=== PATIENT | female | born 1980 | race American Indian/Alaskan Native ===

== ENCOUNTER 2021-07-24 05:54 | Day surgery (SDC) | payer MEDICAID ==
[~2021-07-24 05:54] MED LIST: BUPIVACAINE/PF (0.5%) 5 MG/1 ML 30 ML VIAL INFILTRATI ONE; HEPARIN 10,000 UNITS/10 ML VIAL IV ONE; SODIUM CHLORIDE 0.9% 500 ML IVPB IV ONE; SODIUM CHLORIDE 0.9% IRR 1,500 ML BOTTLE IR ONE
[2021-07-24] MEDS ORDERED: ceFAZolin/STERILE WATER 2 GM/20 ML SYRINGE IV NR (06:00)
[2021-07-24] MEDS ORDERED: SODIUM CHLORIDE 0.9% 1000 ML 1,000 ML ONE (06:10)
[2021-07-24 06:47] LABS: Hematocrit 35.5 % (30.3-42.9); Mean Corpuscular HGB Conc 31 % (30-34); Mean Corpuscular Volume 88 fl (79-97); Platelet Count 242 K/mm3 (140-440); Red Blood Count 4.05 M/mm3 (3.65-5.03)
[2021-07-24 06:59] LABS: Red Cell Distribution Width 23.4 % (13.2-15.2)
[2021-07-24 07:02] LABS: Calcium 8.8 mg/dL (8.4-10.2)
[2021-07-24] MEDS ORDERED: SCOPOLAMINE TRANSDERMAL PATCH 72 HR TD ONE (07:10)
[2021-07-24] MEDS ORDERED: HEPARIN 10,000 UNITS/10 ML VIAL ONE (07:13)
[2021-07-24] MEDS ORDERED: LIDOCAINE 1%/EPINEPHRINE 1:100,000 VIAL (20 ML) INFILTRATI ONE (07:14)
[2021-07-24] MEDS ORDERED: SODIUM CHLORIDE 0.9% 500 ML 500 ML ONE (07:14)
[2021-07-24] MEDS ORDERED: SODIUM BICARBONATE 2 MEQ/2 ML SYRINGE ONE (07:14)
--- NOTE | 2021-07-24 07:18 | Anesthesia Day of Surgery ---
Anesthesia Day of Surgery - Day of Surgery Patient Examined: Yes Patient H&P Reviewed: Yes Patient is NPO: Yes Beta Blockers: No
--- NOTE | 2021-07-24 07:18 | Anesthesia Consultation ---
Anesthesia Consult and Med Hx Date of service: 07/24/21 - Airway Anesthetic Teeth Evaluation: Good ROM Head & Neck: Adequate Mental/Hyoid Distance: Adequate Mallampati Class: Class II Intubation Access Assessment: Probably Good - Pulmonary Exam CTA: Yes - Cardiac Exam Cardiac Exam: RRR - Pre-Operative Health Status ASA Pre-Surgery Classification: ASA3 Proposed Anesthetic Plan: General - Pre-Anesthesia Comment Pre-Anesthesia Comments: Patient prefers general anesthesia. - Pulmonary Hx Smoking: No Hx Respiratory Symptoms: No Hx Sleep Apnea: No - Cardiovascular System Hx Hypertension: Yes (no medications in two days) Hx Cardia Arrhythmia: No - Central Nervous System Hx Neuromuscular Disorder: No Hx Psychiatric Problems: No - Gastrointestinal Hx Gastroesophageal Reflux Disease: No - Endocrine Hx End Stage Renal Disease: Yes ("due to hypertension and lupus"; dialysed yesterday; K+ 4.1 today) - Hematic Hx Anemia: Yes - Other Systems Hx Alcohol Use: No Hx Substance Use: Yes (SMOKES HEMP EVERY OTHER WEEK) Hx Cancer: No - Additional Comments Anesthesia Medical History Comments: No GAC, no FHAC.
[2021-07-24] MEDS ORDERED: MIDAZOLAM 2 MG/2 ML INJ IV NR (07:20)
[2021-07-24] MEDS ORDERED: BUPIVACAINE/PF (0.5%) 5 MG/1 ML 30 ML VIAL INFILTRATI ONE ×2 (07:24→09:31)
[2021-07-24] MEDS ORDERED: LIDOCAINE (1%) 10 MG/1 ML VIAL 20 ML MDV ONE (07:24)
[2021-07-24] MEDS ORDERED: ROCURONIUM 50 MG/5 ML INJ IV ONE (07:28)
[2021-07-24] MEDS ORDERED: SUCCINYLCHOLINE CHLORIDE 200 MG/10 ML INJ MDV ONE (07:28)
[2021-07-24] MEDS ORDERED: fentaNYL 100 MCG/2 ML INJ ONE ×3 (07:28→09:28)
[2021-07-24] MEDS ORDERED: propofoL 200 MG/20 ML VIAL IV ONE (07:28)
[2021-07-24] MEDS ORDERED: LIDOCAINE MPF (2%) 20 MG/1 ML VIAL 5 ML ONE (07:28)
[2021-07-24] MEDS ORDERED: ePHEDrine SULFATE 50 MG/1 ML INJ ONE ×2 (07:28→09:36)
[2021-07-24] MEDS ORDERED: SODIUM CHLORIDE 0.9% 1000 ML 1,000 ML IV SCH (07:30)
[2021-07-24] MEDS ORDERED: ONDANSETRON 4 MG/2 ML INJ IV PRN (07:42)
[2021-07-24] MEDS ORDERED: HYDROmorphone 1 MG/1 ML INJ IV PRN ×2 (07:42)
[2021-07-24] MEDS ORDERED: SCOPOLAMINE TRANSDERMAL PATCH 72 HR TD NR (08:00)
[2021-07-24] MEDS ORDERED: SODIUM CHLORIDE 0.9% 500 ML IVPB IV ONE (09:31)
[2021-07-24] MEDS ORDERED: HEPARIN 10,000 UNITS/10 ML VIAL IV ONE (09:31)
[2021-07-24] MEDS ORDERED: SODIUM CHLORIDE 0.9% IRR 1,500 ML BOTTLE IR ONE (09:31)
--- NOTE | 2021-07-24 10:28 | Short Stay Summary ---
Short Stay Documentation Date of service: 07/24/21 Narrative H&P: See H&P - History H&P: obtained from office - Allergies and Medications Current Medications: Allergies No Known Allergies Allergy (Verified 07/17/21 11:56) Home Medications Medication Instructions Recorded Confirmed Last Taken Type Acetaminophen [Aphen] 325 mg PO PRN PRN 07/17/21 07/17/21 Unknown History AtorvaSTATin [Lipitor] 20 mg PO QHS 07/17/21 07/24/21 07/22/21 20:00 History Docusate Sodium [Dok] 100 mg PO 3XW 07/17/21 07/24/21 07/22/21 09:00 History Losartan Potassium 100 mg PO DAILY 07/17/21 07/24/21 07/22/21 09:00 History Zolpidem (Nf) [Ambien (Nf)] 10 mg PO HS 07/17/21 07/24/21 07/22/21 20:00 History calcitrioL [Rocaltrol] 0.25 mcg PO DAILY 07/17/21 07/24/21 07/22/21 09:00 History Active Medications Cefazolin Sodium (Cefazolin/Sterile Water 2 Gm/20 Ml Syringe) 2 gm IV PREOP NR Stop: 07/24/21 23:55 Hydromorphone HCl (Hydromorphone 1 Mg/1 Ml Inj) 0.25 mg IV Q10MIN PRN PRN Reason: Pain, Moderate (4-6) Stop: 07/24/21 20:00 Hydromorphone HCl (Hydromorphone 1 Mg/1 Ml Inj) 0.5 mg IV Q10MIN PRN PRN Reason: Pain , Severe (7-10) Stop: 07/24/21 20:00 Sodium Chloride (Nacl 0.9% 1000 Ml) 1,000 mls @ 42 mls/hr IV DIRECT JOSEFA Stop: 07/24/21 23:00 Last Admin: 07/24/21 07:20 Dose: 42 mls/hr Documented by: Midazolam HCl (Midazolam 2 Mg/2 Ml Inj) 2 mg IV ONCE NR Stop: 07/24/21 11:00 Last Admin: 07/24/21 07:44 Dose: 2 mg Documented by: Ondansetron HCl (Ondansetron 4 Mg/2 Ml Inj) 4 mg IV ONCE PRN PRN Reason: Nausea And Vomiting Stop: 07/24/21 18:00 Scopolamine (Scopolamine Transdermal Patch 72 Hr) 1 each TD PREOP NR Stop: 07/24/21 11:00 Last Admin: 07/24/21 07:25 Dose: 1 each Documented by: - Brief post op/procedure progress note Date of procedure: 07/24/21 Pre-op diagnosis: End-Stage Renal Disease Post-op diagnosis: same Procedure: Creation of Left Brachiocephalic Arteriovenous Fistula Anesthesia: GETA Surgeon: DAWIT AMBROSIO Estimated blood loss: minimal Pathology: none Condition: stable - Disposition Condition at discharge: Good Short Stay Discharge Plan Activity: other (No heavy lifting with left arm for 2 weeks. You stress ball with left hand as often as possible.) Wound: open to air, keep clean and dry, other (Okay to wash the left arm wound with soap and water but do not soak in water for 2 weeks.) Follow up with: DAWIT AMBROSIO MD [Staff Physician] - 14 Days Prescriptions: HYDROcodone/APAP 5-325 [[place] 5/325] 1 each PO Q4HR PRN #30 tablet PRN Reason: Pain
--- NOTE | 2021-07-24 10:31 | Operative Report ---
Operative Report Operative Report: Date of procedure: 07/24/2021 Pre-operative diagnosis: End-Stage Renal Disease Post-operative diagnosis: End-Stage Renal Disease Procedure(s): Creation of Left Brachial Artery to Cephalic Vein Arteriovenous Fistula Surgeon: Raleigh Melissa MD Container Maker: None Anesthesia: General Endotracheal Anesthesia EBL: Minimal Counts: Correct Complications: None Condition: Stable Findings: Successful creation of left brachiocephalic arteriovenous fistula with palpable thrill and palpable radial pulse at the completion of the case. Specimen: None Indications: The patient is a 41-year-old female with a history of end-stage renal disease who is currently on hemodialysis through a right internal jugular permacath. She is in need of long-term dialysis access and was found to be a suitable candidate for creation of an arteriovenous fistula. She was given the risk, benefits, and alternative procedures and consented to the procedure. Description of Procedure: The patient was brought to the operating room and laid in supine position. After general endotracheal anesthesia was achieved left arm was prepped and draped in normal sterile fashion. A transverse incision was then made and carried down to the cephalic vein using sharp dissection. The vein was dissected out both proximally and distally and suture ligated and divided distally. I flushed the vein with heparinized saline and flow was controlled with a bulldog clamp. I then dissected out the brachial artery through this incision circumferentially both proximal and distal and controlled the artery with vessel loops. I systemically heparinized the patient with 3000 units of heparin IV and used angled DeBakey clamps to control flow through the artery. I created an arteriotomy using an 11 blade and Mcqueen scissors. I created an end to side anastomosis between the cephalic vein and brachial artery using a 6-0 Prolene in running fashion. Prior to completing the anastomosis I flashed the artery both proximally and distally and then flushed the anastomosis with heparinized saline to remove any debris. I then completed the anastomosis and removed all clamps allowing flow into the fistula which had an adequate thrill. I achieved hemostasis with a combination of Quick Clot and electrocautery. Once hemostasis had been achieved I closed the wound in 2 layers using a 3-0 Vicryl in a running fashion in the deep dermal layer and a 4-0 Monocryl in running fashion in the subcuticular layer. I then dressed the wound with Dermabond. The patient tolerated the procedure well. All sponge, needle, and instrument counts were correct. The patient was taken to the recovery area in stable condition.
[2021-07-24 11:19] VITALS: BP 117/69
[2021-07-24] MEDS ORDERED: HYDROcodone/ACETAMINOPHEN 5-325 MG TAB PO PRN (12:00)
--- NOTE | 2021-07-24 15:50 | Post Anesthesia Evaluation ---
- Post Anesthesia Evaluation Patient Participated: Yes Airway Patent: Yes Stable Respiratory Function: Yes Nausea/Vomiting: No Temp > 96.8F: Yes Pain Manageable: Yes Adequeate Hydration: Yes Anesthesia Complications: No Block Receding Appropriately: Not Applicable Patient on Ventilator: No
== END 2021-07-24 12:30 | disposition home or self-care (01) ==
LOC: OR 05:54
PROVIDERS: ATTEND Surgery Vascular Surgery
DX: I12.0 Hypertensive chronic kidney disease with stage 5 chronic kidney disease or end stage renal disease (principal); N18.6 End stage renal disease; E78.00 Pure hypercholesterolemia, unspecified; M19.90 Unspecified osteoarthritis, unspecified site; K21.9 Gastro-esophageal reflux disease without esophagitis; D64.9 Anemia, unspecified; Z99.2 Dependence on renal dialysis; Z79.899 Other long term (current) drug therapy; Z98.890 Other specified postprocedural states
CPT/HCPCS: 36415; 36821; 80048; 84703; 85027; J0330; J0690; J1644; J2250; J2704; J3010; J3490; J7030; J7040; J7120; Q0162

== ENCOUNTER 2021-12-11 05:38 | Day surgery (SDC) | payer MEDICARE ==
[2021-12-11] MEDS ORDERED: MIDAZOLAM 2 MG/2 ML INJ IV NR (06:00)
[2021-12-11] MEDS ORDERED: ceFAZolin/STERILE WATER 2 GM/20 ML SYRINGE IV NR (06:00)
[2021-12-11] MEDS ORDERED: SODIUM CHLORIDE 0.9% 1000 ML 1,000 ML IV SCH (06:00)
[2021-12-11 06:47] LABS: Hemoglobin 9.6 gm/dl (10.1-14.3); Mean Corpuscular HGB Conc 34 % (30-34); Mean Corpuscular Volume 92 fl (79-97); Platelet Count 230 K/mm3 (140-440); Red Blood Count 3.03 M/mm3 (3.65-5.03); Red Cell Distribution Width 18.7 % (13.2-15.2)
[2021-12-11 07:00] LABS: Calcium 8.7 mg/dL (8.4-10.2)
[2021-12-11] MEDS ORDERED: LIDOCAINE MPF (2%) 20 MG/1 ML VIAL 5 ML ONE (07:18)
[2021-12-11] MEDS ORDERED: fentaNYL 100 MCG/2 ML INJ ONE (07:18)
[2021-12-11] MEDS ORDERED: propofoL 200 MG/20 ML VIAL IV ONE (07:19)
--- NOTE | 2021-12-11 07:21 | Anesthesia Consultation ---
Anesthesia Consult and Med Hx Date of service: 12/11/21 - Airway Anesthetic Teeth Evaluation: Good ROM Head & Neck: Adequate Mental/Hyoid Distance: Adequate Mallampati Class: Class II Intubation Access Assessment: Probably Good - Pre-Operative Health Status ASA Pre-Surgery Classification: ASA3 Proposed Anesthetic Plan: General - Pulmonary Hx Smoking: No Hx Respiratory Symptoms: No Hx Sleep Apnea: No - Cardiovascular System Hx Hypertension: No (prior hx HTN; currently on midodrine for hypotension) Hx Heart Attack/AMI: No - Central Nervous System CVA: No - Endocrine Hx End Stage Renal Disease: Yes (last HD 12/10/21) Hx Liver Disease: No Hx Insulin Dependent Diabetes: No Hx Non-Insulin Dependent Diabetes: No Hx Thyroid Disease: No - Hematic Hx Anemia: Yes - Other Systems Hx Obesity: Yes (BMI 37) - Additional Comments Anesthesia Medical History Comments: No hx anesthetic complications.
--- NOTE | 2021-12-11 07:21 | Anesthesia Day of Surgery ---
Anesthesia Day of Surgery - Day of Surgery Patient Examined: Yes Patient H&P Reviewed: Yes Patient is NPO: Yes
[2021-12-11] MEDS ORDERED: BUPIVACAINE/PF (0.5%) 5 MG/1 ML 30 ML VIAL INFILTRATI ONE ×2 (07:38→09:05)
[2021-12-11] MEDS ORDERED: SODIUM CHLORIDE 0.9% 500 ML 500 ML ONE (07:39)
[2021-12-11] MEDS ORDERED: HEPARIN 10,000 UNITS/10 ML VIAL ONE (07:39)
[2021-12-11] MEDS ORDERED: ONDANSETRON 4 MG/2 ML INJ IV NR (08:00)
[2021-12-11] MEDS ORDERED: fentaNYL 100 MCG/2 ML INJ IV PRN (08:00)
[2021-12-11] MEDS ORDERED: SCOPOLAMINE TRANSDERMAL PATCH 72 HR TD NR (08:00)
[2021-12-11] MEDS ORDERED: ePHEDrine SULFATE 50 MG/1 ML INJ ONE (08:53)
[2021-12-11] MEDS ORDERED: HEPARIN 10,000 UNITS/10 ML VIAL IR ONE (09:04)
[2021-12-11] MEDS ORDERED: SODIUM CHLORIDE 0.9% 500 ML IVPB IRRIGATION ONE (09:05)
[2021-12-11] MEDS ORDERED: SODIUM CHLORIDE 0.9% IRR 1,500 ML BOTTLE IR ONE (10:09)
--- NOTE | 2021-12-11 10:14 | Short Stay Summary ---
Short Stay Documentation Date of service: 12/11/21 Narrative H&P: See H&P - History H&P: obtained from office - Allergies and Medications Current Medications: Allergies No Known Allergies Allergy (Verified 12/03/21 11:31) Home Medications Medication Instructions Recorded Confirmed Last Taken Type AtorvaSTATin [Lipitor] 20 mg PO QHS 07/17/21 12/03/21 07/22/21 20:00 History Docusate Sodium [Dok] 100 mg PO 3XW 07/17/21 12/03/21 07/22/21 09:00 History Losartan Potassium 100 mg PO DAILY 07/17/21 12/03/21 07/22/21 09:00 History Zolpidem (Nf) [Ambien (Nf)] 10 mg PO HS 07/17/21 12/03/21 07/22/21 20:00 History calcitrioL [Rocaltrol] 0.25 mcg PO DAILY 07/17/21 12/03/21 07/22/21 09:00 History Midodrine [Proamatine] 10 mg PO TID@0800,1200,1600 12/03/21 12/03/21 Unknown History Active Medications Cefazolin Sodium (Cefazolin/Sterile Water 2 Gm/20 Ml Syringe) 2 gm IV PREOP NR Stop: 12/11/21 23:59 Fentanyl (Fentanyl 100 Mcg/2 Ml Inj) 50 mcg IV Q5MIN PRN PRN Reason: Pain , Severe (7-10) Stop: 12/11/21 18:00 Sodium Chloride (Nacl 0.9% 1000 Ml) 1,000 mls @ 42 mls/hr IV DIRECT JOSEFA Stop: 12/11/21 23:59 Last Admin: 12/11/21 07:30 Dose: 42 mls/hr Midazolam HCl (Midazolam 2 Mg/2 Ml Inj) 2 mg IV PREOP NR Stop: 12/11/21 23:00 Last Admin: 12/11/21 07:40 Dose: 2 mg Ondansetron HCl (Ondansetron 4 Mg/2 Ml Inj) 4 mg IV PREOP NR Stop: 12/11/21 17:00 Last Admin: 12/11/21 07:35 Dose: 4 mg Scopolamine (Scopolamine Transdermal Patch 72 Hr) 1 each TD PREOP NR Stop: 12/11/21 17:00 Last Admin: 12/11/21 07:37 Dose: 1 each - Brief post op/procedure progress note Date of procedure: 12/11/21 Pre-op diagnosis: Complications of Dialysis Access Post-op diagnosis: same Procedure: Elevation of Left Brachiocephalic Arteriovenous Fistula Anesthesia: JOAN Surgeon: DAWIT AMBROSIO Estimated blood loss: 50-100ml Pathology: none Condition: stable - Disposition Condition at discharge: Good Disposition: 01 HOME / SELF CARE / HOMELESS Short Stay Discharge Plan Activity: other (No heavy lifting with left arm for 2 weeks.) Wound: open to air, keep clean and dry, other (Okay to wash the left arm incision with soap and water but do not soak in water for 2 weeks.) Follow up with: DAWIT AMBROSIO MD [Staff Physician] - 14 Days Prescriptions: oxyCODONE /ACETAMINOPHEN [Percocet 5/325] 1 tab PO Q4HR #30 tab
[2021-12-11] MEDS ORDERED: dexAMETHasone 20 MG/5 ML VIAL ONE (10:15)
--- NOTE | 2021-12-11 10:19 | Operative Report ---
Operative Report Operative Report: Date of Procedure: 12/11/2021 Pre-operative Diagnosis: Complications of Dialysis Access Post-operative Diagnosis: Same Procedure(s): 1. Revision with Elevation of Left Brachiocephalic Arteriovenous Fistula Surgeon: Raleigh Melissa M.D. Carbon Brusher Assembler: Romina Anesthesia: General Endotracheal Anesthesia EBL: 50 mL Counts: Correct Complications: None Condition: Stable Findings: Fistula was elevated without evidence of tension at the completion of the case. Specimen: None Indication: The patient is a 41-year-old female with history of end-stage renal disease who had a creation of a left brachiocephalic arteriovenous fistula. They have had difficulty accessing the during dialysis, secondary to the depth of the fistula. She is in need of a revision of the fistula with elevation to the surface to assist with ease of cannulation. She has been given the risk, benefits, and alternative procedures and consented to the procedure. Description of Procedure: The patient was brought to the operating room and laid in supine position. After timeout was performed general endotracheal anesthesia was achieved her left arm was prepped and draped in normal sterile fashion. An incision was created centered over the fistula, using a 10 blade, extending from just proximal to the arterial anastomosis to the venous outflow of the fistula. The incision was carried down to the fistula using sharp dissection and the fistula was dissected circumferentially, throughout the length of the incision, ensuring that all side branches were suture ligated and divided. Once the fistula had been dissected circumferentially, and all side branches had been ligated, a subcutaneous pocket was created on the medial aspect of the incision using cautery. The fistula was then placed within the pocket and 3-0 Vicryl in interrupted fashion was used to secure the fistula within the pocket. Hemostasis within the wound was then achieved with a combination of Quick Clot and cautery. Once hemostasis was achieved the wound was closed in 2 layers using 3-0 Vicryl running fashion the deep dermal layer and 4-0 Monocryl in running fashion the subcuticular layer and then dressed with Dermabond. The patient tolerated the procedure well. All sponge, needle, and instrument counts were correct. The patient was taken to the recovery area in stable condition.
[2021-12-11] MEDS ORDERED: ONDANSETRON 4 MG/2 ML INJ IV PRN (10:53)
[2021-12-11] MEDS ORDERED: oxyCODONE /ACETAMINOPHEN 5-325MG TAB PO PRN (11:00)
[2021-12-11 11:17] VITALS: BP 103/57
--- NOTE | 2021-12-11 13:12 | Post Anesthesia Evaluation ---
- Post Anesthesia Evaluation Patient Participated: Yes Airway Patent: Yes Stable Respiratory Function: Yes Nausea/Vomiting: No Temp > 96.8F: Yes Pain Manageable: Yes Adequeate Hydration: Yes Anesthesia Complications: No
== END 2021-12-11 11:50 | disposition home or self-care (01) ==
LOC: OR 05:38
PROVIDERS: ATTEND Surgery Vascular Surgery
DX: T82.898A Other specified complication of vascular prosthetic devices, implants and grafts, initial encounter (principal); T82.590A Other mechanical complication of surgically created arteriovenous fistula, initial encounter; I12.0 Hypertensive chronic kidney disease with stage 5 chronic kidney disease or end stage renal disease; N18.6 End stage renal disease; E78.00 Pure hypercholesterolemia, unspecified; E66.9 Obesity, unspecified; D64.9 Anemia, unspecified; M19.90 Unspecified osteoarthritis, unspecified site; Z98.890 Other specified postprocedural states; Z98.51 Tubal ligation status; Z79.899 Other long term (current) drug therapy; Z68.37 Body mass index [BMI] 37.0-37.9, adult; Y92.89 Other specified places as the place of occurrence of the external cause; Y82.8 Other medical devices associated with adverse incidents
CPT/HCPCS: 36415; 36832; 80048; 84703; 85027; 86850; 86900; 86901; J0690; J1100; J1644; J2250; J2405; J2704; J3010; J3490; J7030; J7040; J7120; Q0162

== ENCOUNTER 2022-03-15 10:59 | Day surgery (SDC) | payer MEDICARE ==
[2022-03-15 12:00] LABS: Hematocrit 32.6 % (30.3-42.9); Hemoglobin 10.6 gm/dl (10.1-14.3); Mean Corpuscular HGB Conc 33 % (30-34); Mean Corpuscular Volume 96 fl (79-97); Platelet Count 241 K/mm3 (140-440); Red Blood Count 3.39 M/mm3 (3.65-5.03); Red Cell Distribution Width 17.4 % (13.2-15.2)
[2022-03-15] MEDS ORDERED: SODIUM CHLORIDE 0.9% 500 ML 500 ML IV SCH (12:00)
[2022-03-15 12:19] LABS: Calcium 9.3 mg/dL (8.4-10.2)
[2022-03-15 12:34] LABS: INR 0.93 (0.87-1.13); Partial Thromboplastin Time 30.6 Sec. (24.2-36.6)
[2022-03-15] MEDS ORDERED: LIDOCAINE (1%) 10 MG/1 ML VIAL 20 ML MDV ONE (14:13)
[2022-03-15] MEDS ORDERED: HEPARIN/NS 5000 UNIT/500ML 1,000 ML IR ONE (14:13)
[2022-03-15] MEDS ORDERED: NITROGLYCERIN SYRINGE 0 ML ONE (14:14)
--- NOTE | 2022-03-15 14:44 | Short Stay Summary ---
Short Stay Documentation Date of service: 03/15/22 Narrative H&P: The patient is a 42-year-old female with a history of end-stage renal disease who is on hemodialysis through an elevated left brachiocephalic arteriovenous fistula. She presents with complaints of a thrombosed arteriovenous fistula and requires a diagnostic fistulogram with possible percutaneous mechanical thrombectomy. She has been given the risk, benefits, and alternative procedures and has consented to the procedure. - History Past Medical History: anemia, dialysis, ESRD, hypertension, other (Lupus) Past Surgical History: Other (Creation of left brachiocephalic arteriovenous fis lazaro, revision with elevation of left brachiocephalic arteriovenous fistula, tubal ligation) Social history: no significant social history - Allergies and Medications Current Medications: Allergies No Known Allergies Allergy (Verified 12/03/21 11:31) Home Medications Medication Instructions Recorded Confirmed Last Taken Type AtorvaSTATin [Lipitor] 20 mg PO QHS 07/17/21 12/03/21 07/22/21 20:00 History Docusate Sodium [Dok] 100 mg PO 3XW 07/17/21 12/03/21 07/22/21 09:00 History Losartan Potassium 100 mg PO DAILY 07/17/21 12/03/21 07/22/21 09:00 History Zolpidem (Nf) [Ambien (Nf)] 10 mg PO HS 07/17/21 12/03/21 07/22/21 20:00 History calcitrioL [Rocaltrol] 0.25 mcg PO DAILY 07/17/21 12/03/21 07/22/21 09:00 History Midodrine [Proamatine] 10 mg PO TID@0800,1200,1600 12/03/21 12/03/21 Unknown History oxyCODONE /ACETAMINOPHEN [Percocet 1 tab PO Q4HR #30 tab 12/11/21 Unknown Rx 5/325] Active Medications Sodium Chloride (Nacl 0.9% 500 Ml) 500 mls @ 50 mls/hr IV DIRECT JOSEFA - Physical exam General appearance: no acute distress Lungs: Normal air movement Breasts: deferred Heart: Regular rate Gastrointestinal: normal Female Genitourinary: deferred Rectal Exam: deferred Extremities: abnormal (Left arm aVF without pulse or thrill) - Brief post op/procedure progress note Date of procedure: 03/15/22 Pre-op diagnosis: Complications of Dialysis Access Post-op diagnosis: same Procedure: 1. Ultrasound-Guided Access Left Arm AV Fistula with 7 [place] Sheath Venous 2. Ultrasound-Guided Access Left Arm AV Fistula with 6 [place] Sheath Arterial 3. Diagnostic Fistulogram with Central Venogram 4. Catheter in Left Brachial Artery 5. Diagnostic Left Upper Extremity Angiogram 6. Percutaneous Pharmacomechanical Thrombectomy of Left Arm AV Fistula with a total of 12 mg of tPA, in the Radio Machinist Device, And a 6 [place] MP Guide Catheter 7. Angioplasty and Stent of Left Arm AV Fistula with 8 x 100 [place] Balloon, 8 x 20 Cutting Balloon, 8 x 10 cm Viabahn Stent Graft, and 9 x 60 Covera Stent Graft in the Venous Outflow and a 6 x 80 EverCross Balloon In the Arterial Inflow 8. Radiologic Supervision with Interpretation 9. Monitored Moderate Sedation (Total Anesthesia Time: 88 Minutes) Anesthesia: local, other (Monitored Moderate Sedation) Surgeon: DAWIT AMBROSIO Estimated blood loss: minimal Pathology: none Condition: stable - Disposition Condition at discharge: Good Disposition: 01 HOME / SELF CARE / HOMELESS Short Stay Discharge Plan Activity: other (Okay to use the left arm arteriovenous fistula during next dialysis session. Do not place tourniquet on left arm AV fistula to assist with cannulation at dialysis.) Wound: remove dressing (Okay to remove the dressings during the next dialysis session. Remove the sutures by pulling the longer of the 2 strings.) Prescriptions: Oxycodone HCl/Acetaminophen [Percocet 7.5/325 mg] 1 each PO Q6HR PRN #20 tab PRN Reason: Pain
[2022-03-15] MEDS ORDERED: WATER FOR INJ Sterile (PF) 10 ML ONE ×2 (14:50→16:03)
[2022-03-15] MEDS: fentaNYL 100 MCG/2 ML INJ ONE ×4 (14:59→16:06)
[2022-03-15] MEDS: HEPARIN 10,000 UNITS/10 ML VIAL ONE ×3 (15:00→15:56)
[2022-03-15] MEDS: MIDAZOLAM 2 MG/2 ML INJ ONE ×5 (15:00→15:36)
[2022-03-15] MEDS: ALTEPLASE 2 MG INJ ONE ×2 (15:00→15:04)
[2022-03-15] MEDS ORDERED: SODIUM CHLORIDE 0.9% 1000 ML 0 ML ONE (15:11)
[2022-03-15] MEDS ORDERED: ALTEPLASE 2 MG INJ ONE (16:03)
[2022-03-15] MEDS ORDERED: MIDAZOLAM 2 MG/2 ML INJ ONE (16:13)
[2022-03-15] MEDS ORDERED: APIXABAN 5 MG TAB ONE (16:26)
--- NOTE | 2022-03-15 16:46 | Operative Report ---
Operative Report Operative Report: Date of Procedure: 03/15/2022 Pre-operative Diagnosis: Complications of Dialysis Access Post-operative Diagnosis: Same Procedure(s): 1. Ultrasound-Guided Access Left Arm AV Fistula with 7 Kenyan Sheath Venous 2. Ultrasound-Guided Access Left Arm AV Fistula with 6 Kenyan Sheath Arterial 3. Diagnostic Fistulogram with Central Venogram 4. Catheter in Left Brachial Artery 5. Diagnostic Left Upper Extremity Angiogram 6. Percutaneous Pharmacomechanical Thrombectomy of Left Arm AV Fistula with a total of 12 mg of tPA, in the Preboarder Device, And a 6 Kenyan MP Guide Catheter 7. Angioplasty and Stent of Left Arm AV Fistula with 8 x 100 [place] Balloon, 8 x 20 Cutting Balloon, 8 x 10 cm Viabahn Stent Graft, and 9 x 60 Covera Stent Graft in the Venous Outflow and a 6 x 80 EverCross Balloon In the Arterial Inflow 8. Radiologic Supervision with Interpretation 9. Monitored Moderate Sedation (Total Anesthesia Time: 88 Minutes) Surgeon: Raleigh Melissa M.D. Tester Sem[employer]ductor Packages: None Anesthesia: Local/Monitored Moderate Sedation Total Anesthesia Time: 88 Minutes EBL: Minimal Counts: Correct Complications: None Condition: Stable Specimen: None Indication: The patient is a 42-year-old female with history of end-stage renal disease who is on hemodialysis through an elevated brachiocephalic arteriovenous fistula. She presents with complaints of a thrombosed arteriovenous fistula. She is in need of a diagnostic fistulogram with possible intervention. She was given the risk, benefits, and alternative procedures and consented to the procedure. Angiographic Findings: The diagnostic fistulogram revealed thrombus throughout the cannulation zone of the fistula. The cephalic arch was patent however there was 70 to 85% stenosis. The central venous system was patent without evidence of flow-limiting stenosis. There was thrombus within the arterial inflow of the fistula with 80 to 85% stenosis. The diagnostic left upper extremity angiogram revealed that the brachial artery was patent without evidence of flow-limiting stenosis. There was approximately 50% stenosis of the arterial anastomosis. Both the radial and ulnar arteries were patent without evidence of flow-limiting stenosis or thrombus. After intervention the fistula was patent with minimal residual thrombus within the arterial inflow however there was no significant thrombus throughout the remainder of the fistula. The fistula was patent with less than 15% residual stenosis and no evidence of extravasation around the stent grafts that were placed. There was no evidence of distal emboli within the arterial system at the completion of the case. Description of Procedure: The patient was brought to the Prison Teacher and laid in supine position. After timeout was performed her left arm was prepped and draped in normal sterile fashion. Ultrasound was used to identify the fistula, near the arterial inflow, and lidocaine was used anesthetize the skin and soft tissue overlying the fistula. A 21-gauge micropuncture needle was used with ultrasound guidance to access the fistula towards the venous outflow and a 0.018 micropuncture wire was advanced into the fistula. The needle was removed and a 7 Kenyan sheath was placed by Seldinger technique. A diagnostic fistulogram was performed with the previously described findings. I advanced the 0.035 Bentson wire and vertebral catheter through the thrombus and into the central venous system and performed a diagnostic central venogram with the previously described findings. I advanced the Bentson wire into the inferior vena cava to anchor the wire. At this point I systemically heparinized the patient with 5000 units of heparin IV and then injected a total of 6 mg of tPA into the fistula. I allow this to dwell for approximately 15 minutes and then performed angioplasty of the fistula using an 8 x 100 [place] Balloon. This resulted in approximately 75% residual stenosis throughout the fistula. I used the bottle packing machine cleaner device to morcellate thrombus within the fistula and then used a 6 Kenyan multipurpose guide catheter to aspirate thrombus throughout the fistula. There was minimal residual thrombus within the venous outflow of the fistula. I then advanced a 0.018V 18 wire into the central venous system and performed angioplasty of the venous outflow of the fistula using an 8 x 20 Cutting Balloon. This resulted in less than 15% residual stenosis in the fistula however there was extravasation of contrast in the distal cephalic arch. I placed an 8 x 10 cm Viabahn Stent Graft across the area and postdilated with a 8 x 100 [place]ona balloon with no was no further evidence of extravasation. I then used the ultrasound to identify the fistula near the venous outflow and anesthetize the skin and soft tissue overlying this portion of the fistula with lidocaine. I used a 21-gauge micropuncture needle with ultrasound guidance to access the fistula towards the arterial inflow and advanced the 0.018 micropuncture wire into the fistula. I removed the needle and placed a 6 Kenyan sheath by Seldinger technique. I advanced a Glidewire and vertebral catheter into the proximal brachial artery and performed a diagnostic left upper extremity angiogram with the previously described findings. I performed angioplasty of the arterial inflow of the fistula with a 7 x 80 Akhil Balloon which resulted in less than 50% residual stenosis within the arterial inflow. I then used the bottle packing machine cleaner device to morcellate thrombus and aspirated through the sheath. At this point the patient developed pulsatility within the fistula. The fistulogram revealed a significant amount of thrombus within the venous outflow of the fistula. I injected 6 mg of tPA and allow this to dwell for approximately 15 minutes and then used the bottle packing machine cleaner device to morcellate the thrombus. Despite this the thrombus persisted so I used the 8 x 100 [place] balloon to further macerate the thrombus and this resulted in extravasation of contrast just distal to the previously placed stent graft. There was also evidence of contrast flowing around the previously placed stent graft resulting in an endoleak. I removed my 7 Kenyan sheath and advanced a 9 x 60 Covera Stent Graft bareback into position. I deployed the stent graft with approximately 2 cm overlap and then postdilated with an 8 x 40 [place] Balloon which resulted in no further extravasation of contrast, no endoleak, and brisk flow of contrast throughout the system. I advanced the catheter back into the brachial artery and performed a final angiogram that demonstrated no evidence of distal emboli. At this point all catheters and wires were removed and 2-0 Ethilon in slipknot fashion was used to close each entry site after removing the sheaths. Sterile dressings were then applied to the entry sites and the patient was transported to the recovery area in stable condition.
[2022-03-15] MEDS ORDERED: ONDANSETRON 4 MG/2 ML INJ ONE (16:53)
[2022-03-15] MEDS ORDERED: oxyCODONE /ACETAMINOPHEN 5-325MG TAB PO ONE (16:54)
[2022-03-15 17:31] VITALS: BP 130/79
== END 2022-03-15 11:00 | disposition home or self-care (01) ==
LOC: CATH 10:59 → CATHLABREC 10:59
PROVIDERS: ATTEND Surgery Vascular Surgery
DX: T82.898A Other specified complication of vascular prosthetic devices, implants and grafts, initial encounter (principal); T82.868A Thrombosis due to vascular prosthetic devices, implants and grafts, initial encounter; I12.0 Hypertensive chronic kidney disease with stage 5 chronic kidney disease or end stage renal disease; N18.6 End stage renal disease; E78.00 Pure hypercholesterolemia, unspecified; E66.9 Obesity, unspecified; D64.9 Anemia, unspecified; M19.90 Unspecified osteoarthritis, unspecified site; Z98.51 Tubal ligation status; Z79.899 Other long term (current) drug therapy; Z98.890 Other specified postprocedural states; Z68.38 Body mass index [BMI] 38.0-38.9, adult; Y82.8 Other medical devices associated with adverse incidents; Y92.89 Other specified places as the place of occurrence of the external cause
CPT/HCPCS: 36415; 36906; 80048; 85027; 85610; 85730; 99156; 99157; C1725; C1751; C1757; C1769; C1874; C1887; C1894; J1644; J2250; J2405; J2997; J3010; J7040; J1815; J7030; Q9967